=== PATIENT | male | born 1960 | race Caucasian/White ===

== ENCOUNTER 2024-09-15 15:03 | Emergency (ER) | payer MEDICARE, MEDICAID ==
[~2024-09-15] VITALS: Ht 172.7 cm; Wt 86.8 kg
[~2024-09-15 15:03] MED LIST: ETRA200T PO; GABA-1181 PO; LISI10TA PO; MORP-131 PO; RALT400T PO
[2024-09-15 15:04] VITALS: BP 156/83; PULSE 60; RESP 18; TEMP 98.1; O2SAT 100
[2024-09-15] MEDS ORDERED: METH-811 PO (15:10)
[2024-09-15] MEDS ORDERED: MORP15TA70 PO (15:10)
[2024-09-15] MEDS ORDERED: RILP25 PO (15:10)
[2024-09-15] MEDS ORDERED: BICT1TAB PO (15:10)
[2024-09-15] MEDS ORDERED: ATOR20TA65 PO (15:10)
[2024-09-15] MEDS ORDERED: TRAZ-257 PO (15:10)
[2024-09-15] MEDS ORDERED: AMLO10TA55 PO (15:10)
[2024-09-15] MEDS ORDERED: MORP15TA9 PO (15:10)
[2024-09-15] MEDS ORDERED: GABA-1554 PO (15:10)
[2024-09-15] MEDS: HYDROCODONE/ACETAMINOPHEN 10-325 MG TABLET PO ONE (16:12)
[2024-09-15] MEDS: KETOROLAC TROMETHAMINE 30 MG/ML VIAL IM ONE (16:13)
== END 2024-09-15 17:11 | disposition home or self-care (01) ==
LOC: EMS 15:21
DX: G89.29 Other chronic pain (principal); F32.A Depression, unspecified; F17.210 Nicotine dependence, cigarettes, uncomplicated; Z88.2 Allergy status to sulfonamides; Z79.624 Long term (current) use of inhibitors of nucleotide synthesis; Z79.899 Other long term (current) drug therapy
CPT/HCPCS: 99283; 96372; J1885